=== PATIENT | female | born 1950 | race Caucasian/White ===

== ENCOUNTER → 2020-06-21 11:59 | Outpatient (BNVA) | payer MEDICARE, OTHER, SELFPAY | PROVIDERS: Family Provider Family Medicine; PCP Family Medicine; Referring Provider Family Medicine; Visit Provider Specialist | DX: G56.03 Carpal tunnel syndrome, bilateral upper limbs (principal); R20.2 Paresthesia of skin | CPT/HCPCS: 95910 ==

== ENCOUNTER 2020-07-04 08:15 | Outpatient (CLI) | payer MEDICARE, OTHER, SELFPAY ==
--- NOTE | 2020-07-04 08:26 | MM_ITS ---
WS: [id number] BILATERAL DIGITAL SCREENING MAMMOGRAPHY WITH CAD CLINICAL INFORMATION: SCREENING HISTORY: Screening mammogram. No current complaints. COMPARISON: TECHNIQUE: Bilateral CC and MLO views. FINDINGS: Scattered fibroglandular densities bilaterally. No suspicious focal mass, asymmetry, calcifications, or architectural distortion. No evidence of malignancy. A few lucent centered calcifications. Vascula [place] calcification. MM/[id number] IMPRESSION: BI-RADS: 2-Benign FOLLOW UP: 1 Year Follow-up Recommend return to annual screening mammography.
== END 2020-07-04 08:16 | disposition home or self-care (01) ==
LOC: RADSHAW 08:19
PROVIDERS: PCP Family Medicine; Visit Provider Family Medicine
DX: Z12.31 Encounter for screening mammogram for malignant neoplasm of breast (principal)
CPT/HCPCS: 77067

== ENCOUNTER → 2020-08-10 13:15 | Outpatient (BNVA) | payer MEDICARE, OTHER, SELFPAY | PROVIDERS: PCP Family Medicine; Visit Provider Specialist | DX: M79.641 Pain in right hand (principal); M79.642 Pain in left hand; G56.02 Carpal tunnel syndrome, left upper limb; G56.01 Carpal tunnel syndrome, right upper limb | CPT/HCPCS: 73100; 73110 ==

== ENCOUNTER → 2020-09-06 12:54 | Outpatient (BNVA) | payer MEDICARE, OTHER, SELFPAY | PROVIDERS: PCP Family Medicine; Visit Provider Specialist | DX: Z11.59 Encounter for screening for other viral diseases (principal) | CPT/HCPCS: 87635 ==

== ENCOUNTER 2020-09-09 06:22 | Day surgery (SDC) | payer MEDICARE, OTHER, SELFPAY ==
[2020-09-08 09:27] VITALS: BMI 28.3
[2020-09-09 06:31] VITALS: BP 122/63; PULSE 66; RESP 18; TEMP 36.5; O2SAT 98
[2020-09-09] MEDS: sodium chloride 0.9% 1,000 ML 30 ML IV (06:54)
[2020-09-09] MEDS: CELEcoxib 200 mg Capsule 400 MG PO (06:55)
--- NOTE | 2020-09-09 07:00 | W.PM.OPSUD ---
Surgery/Procedure H&P Update DATE OF PROCEDURE: September 09, 2020 DATE H&P PERFORMED: 09/09/20 H&P UPDATE INFORMATION: I have reviewed H&P completed within last 30 days, I have examined patient prior to procedure and H&P to be scanned into chart PREOP DIAGNOSIS: Right carpal tunnel syndrome PLANNED PROCEDURE: Operation Date: 09/09/20 08:00 Proposed Procedures p Carpal Tunnel Release [id number] G56.01(Right) - Kaley Weiss MD Related Problem List Diagnoses (1) Right carpal tunnel syndrome:
--- NOTE | 2020-09-09 07:14 | P.ANESASSM_ITS ---
Pre-Anesthetic Assessment Pre-Anesthetic Assessment: Height/Weight: Height 1.65 m Weight 77.111 kg Temp Pulse Resp BP Pulse Ox 97.7 F 66 18 122/63 98 09/09/20 06:31 09/09/20 06:31 09/09/20 06:31 09/09/20 06:31 09/09/20 06:31 Preop Diagnosis: Right carpal tunnel syndrome Proposed Procedure: Operation Date: 09/09/20 08:00 Proposed Procedures p Carpal Tunnel Release 70426 G56.01(Right) - Kaley Weiss MD Familial anesthetic complications: None Was Beta Lacy taken within 24 hour s: N/A Last intake: Intake Last Liquid Date 09/08/20 Last Liquid Time 23:30 Last Solid Date 09/08/20 Last Solid Time 19:00 Social: Social History: No alcohol and No tobacco Exam: Pre-Anes Outpt Exam: alert, oriented x 3, clear to auscultation bilaterally and regular rate & rhythm Airway: Cervical ROM: WNL MP: 1 Dentition: Full CV/HEM: CV/HEM: HTN Neuropsych: Comments: restless leg Anesthetic Plan: ASA status: 2 Anesthesia: MAC and Regional (specify below) (jamal block) Risk of > 500 ml blood loss (7ml/kg in children): No Meds/Allergies Current Medications: Current Medications Generic Name Dose Route Start Last Admin Trade Name Freq PRN Reason Stop Dose Admin Sodium Chloride 1,000 mls @ 30 ml s/hr 09/09/20 06:30 09/09/20 06:54 Sodium Chloride 0.9% IV 09/10/20 06:29 30 mls/hr .Q24H ANDREAS Administration PFSH Anesthesia PFSH: Family History Father Diabetes Cancer Mother Cancer Social History Smoking and tobacco status: never smoked Alcohol intake: current Alcohol intake frequency: holidays/special occasions only Data Anesthesia CBC & Chem 7: 09/09/20 06:45 Cardiac Studies: No Data to Display
[2020-09-09 07:32] LABS: Anion Gap 14.9 (5-19); Blood Urea Nitrogen 25 mg/dL (8-23); Calcium 9.1 mg/dL (8.5-10.5); Carbon Dioxide 24 mmol/L (22-29); Chloride 103 mmol/L (98-107); Glucose 92 mg/dL (65-115); Osmolality Calculated 290 mOsm/kg (285-295); Potassium 3.9 mmol/L (3.5-5.1); Sodium 138 mmol/L (136-145)
[2020-09-09] MEDS: clindamycin 600 MG/50 ML PREMIX 100 MG IV (08:08)
[2020-09-09 08:56] VITALS: BP 106/64; PULSE 66; RESP 18; TEMP 36.1; O2SAT 97
--- NOTE | 2020-09-09 09:04 | PM.OP ---
Operative Report Date of procedure: September 09, 2020 Pre-op Diagnosis: Right carpal tunnel syndrome Post-op diagnosis: same Procedure Done: Right carpal tunnel release Specimens removed/disposition: None Pathology: none sent Surgeon: Kaley Weiss Speech Assistant: None Anesthesia: MAC (With Suha block, ASA 2) Estimated blood loss (mL): 5 Tourniquet time (min): 30 Tourniquet time: At 250 mmHg IV fluids (mL): 400 Urine output (mL): 0 Urine output: No Morrison Complications: None Findings: Significant compression across the carpal canal Condition: stable Disposition: same day Brief History: This 70-year-old woman presented with symptoms consistent with carpal tunnel syndrome with median nerve compression. After evaluation and discussion, the patient wished to proceed with operative intervention. Risks and complications were discussed with her. Consents were signed preoperatively. Questions were answered. Procedure: The patient was brought to the operating theater. The patient had a [place] block with MAC. The tourniquet was elevated to 250 mmHg for a total tourniquet time of 30 minutes. The patient was also given clindamycin 600 mg preoperatively. The arm was then prepped and draped with DuraPrep in usual fashion with the arm draped free. A surgical pause was performed. At the time, the surgical pause, we confirmed the site and side of surgery. We also confirmed the patient's identity, appropriate and timely administration of preoperative antibiotics and preoperative surgical markings. An incision was then made along the thenar crease. The incision crossed the wrist joint in a curvilinear fashion. Dissection continued through skin and soft tissues using a scalpel. The palmaris longus was identified along with the transverse carpal ligament. Each of these was released carefully to avoid injury to the median nerve. We were able to dissect gently into the carpal canal which was noted to be quite tight with significant compression across the median nerve. The nerve was visualized and was an hourglass shape. The canal was subsequently palpated to assure there was no bony encroachment upon the canal. The canal was then palpated distally and proximally to assure that my small finger was passed easily without impingement. Finding this to be so, attention was directed to closure. The wound was irrigated with ropivacaine plain. It was then closed with 3-0 nylon in an interrupted mattress fashion. Sterile dressing was then placed consisting of Xeroform gauze, fluffed fluffs, sterile soft roll, a volar splint, and an Alek wrap. The tourniquet was released after 30 minutes. There were no complications. There were no specimens. The procedure was well tolerated. Plan is the patient will be discharged home. Associated Problem List Diagnoses (1) Right carpal tunnel syndrome:
[2020-09-09 09:13] VITALS: BP 112/67; PULSE 69; RESP 18; O2SAT 99
--- NOTE | 2020-09-09 09:25 | ANE.PACU2 ---
Inpatient post-anesthesia follow up: Airway intact: Yes Vital signs: Temperature 97 F Pulse Rate 69 Respiratory Rate 18 Blood Pressure 112/67 Pulse Oximetry 99 Oxygen Delivery Me thod Room Air Oxygen Flow Rate Fraction of Inspir ed Oxygen Hydration adequate: Yes Nausea and vomiting: No Pain level: 2 Mental status: Baseline
== END 2020-09-09 09:37 | disposition home or self-care (01) ==
PROVIDERS: PCP Family Medicine; Visit Provider Specialist
PROC: (CPT 64721; principal; 2020-09-09 08:00)
DX: G56.01 Carpal tunnel syndrome, right upper limb (principal); I10 Essential (primary) hypertension
CPT/HCPCS: 64721; 12345; 80048; J0131; J2704; J3010; J3490; J7030

== ENCOUNTER 2021-03-28 10:29 | Outpatient (RCR) | payer MEDICARE, OTHER, SELFPAY | END 2021-04-03 23:59 | disposition home or self-care (01) | LOC: SPT 10:29 | PROVIDERS: PCP Family Medicine; Referring Provider Orthopaedic Surgery; Visit Provider Orthopaedic Surgery | DX: M16.10 Unilateral primary osteoarthritis, unspecified hip (principal) | CPT/HCPCS: 87635; 97161 ==

== ENCOUNTER 2021-03-31 08:08 | Day surgery (SDC) | payer MEDICARE, OTHER, SELFPAY ==
[2021-03-29 13:09] VITALS: BMI 29.2
[2021-03-31 08:26] VITALS: BP 123/68; PULSE 77; RESP 18; TEMP 36.1; O2SAT 98
--- NOTE | 2021-03-31 08:40 | P.ANESASSM_ITS ---
Pre-Anesthetic Assessment Pre-Anesthetic Assessment: Height/Weight: Height 1.63 m Weight 77.111 kg Temp Pulse Resp BP Pulse Ox 97 F L 77 18 123/68 98 03/31/21 08:26 03/31/21 08:26 03/31/21 08:26 03/31/21 08:26 03/31/21 08:26 Preop Diagnosis: Right carpal tunnel syndrome Proposed Procedure: Operation Date: 03/31/21 09:00 Proposed Procedures p Colonoscopy 25636 z12.11(Not Applicable) - Bruce Avilez MD Was Beta Lacy taken within 24 hours: N/A Was Clonidine taken within 24 hours: N/A Last intake: Intake Last Liquid Date 03/30/21 Last Liquid Time 19:00 Last Solid Date 03/29/21 Last Solid Time 18:00 Last Intake: 18:00 Social: Social History: No alcohol and No tobacco Exam: Pre-Anes Outpt Exam: alert and oriented x 3 Airway: Submandibular: WNL Cervical ROM: WNL MP: 2 History/ROS: No significant history except as noted and No significant complaints Anesthetic Plan: ASA status: 2 Anesthesia: MAC Risk of > 500 ml blood loss (7ml/kg in children): No 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
[2021-03-31] MEDS: sodium chloride 0.9% 1,000 ML 30 ML IV (08:44)
--- NOTE | 2021-03-31 09:08 | W.PM.OPSFHP ---
Same Day Surgery H&P Indication for Procedure/HPI DATE OF PROCEDURE: March 31, 2021 CHIEF COMPLAINT/INDICATIONFOR SURGICAL PROCEDURE: Screening colonoscopy PREOP DIAGNOSIS: Right carpal tunnel syndrome PLANNED PROCEDRUE: Operation Date: 03/31/21 09:00 Proposed Procedures p Colonoscopy 66809 z12.11(Not Applicable) - Bruce Avilez MD Medications/Allergies* Home Medications Medication Instructions Recorded Confirmed Type bupropion HCl 300 mg 24 hr tablet, 300 mg PO QAM 08/10/20 03/29/21 History extended release lisinopril 20 1 tab PO DAILY 08/10/20 03/29/21 History mg-hydrochlorothiazide 25 mg tablet ropinirole 3 mg tablet 1 mg PO BID tab 03/16/21 03/29/21 History Allergies/Adverse Reactions Allergy/AdvReac Type Severity Reaction Status Date / Time amoxicillin [From Augmentin] Allergy Severe Hives Verified 03/29/21 13:06 clavulanic acid Allergy Severe Hives Verified 03/29/21 13:06 [From Augmentin] sulfamethoxazole Allergy Severe Anaphylaxis Verified 03/29/21 13:06 [From Bactrim] trimethoprim [From Bactrim] Allergy Severe Anaphylaxis Verified 03/29/21 13:06 Penicillins Allergy Hives Verified 03/29/21 13:06 Current Medications: Generic Name Dose Route Start Last Admin Trade Name Isrealq PRN Reason Stop Dose Admin Sodium Chloride 1,000 mls @ 30 mls/hr 03/31/21 08:15 03/31/21 08:44 Sodium Chloride 0.9% IV 04/01/21 08:14 30 mls/hr .Q24H ANDREAS Administration Pertinent History/Comorbid Conditions* Family History (Updated 08/10/20 @ 13:40 by Roxana Bae LPN) Diabetes Father Cancer Father Mother Social History Smoking and tobacco status: never smoked Alcohol intake: current Alcohol intake frequency: holidays/special occasions only Pertinent Exam Findings alert, oriented x 3, clear to auscultation bilaterally, regular rate & rhythm, operative site marked and procedure specific exam findings Recommendations Surgery/Procedure today Coding Level of Care Code Acute Elevator Examiner And Adjuster for Pranay Hawkins
[2021-03-31 09:38] VITALS: BP 113/59; PULSE 74; RESP 16; TEMP 36.1; O2SAT 92
[2021-03-31 09:46] VITALS: BP 102/56; PULSE 64; RESP 16; O2SAT 97
--- NOTE | 2021-03-31 13:14 | ANE.PACU2 ---
Inpatient post-anesthesia follow up: Airway intact: Yes Vital signs: Temperature 97 F Pulse Rate 64 Respiratory Rate 16 Blood Pressure 102/56 Pulse Oximetry 97 Oxygen Delivery Me thod Room Air Oxygen Flow Rate Fraction of Inspir ed Oxygen Hydration adequate: Yes Nausea and vomiting: No Pain level: 2 Mental status: Baseline
== END 2021-03-31 10:00 | disposition home or self-care (01) ==
PROVIDERS: PCP Family Medicine; Visit Provider Internal Medicine
PROC: 0DJD8ZZ Inspection of Lower Intestinal Tract, Via Natural or Artificial Opening Endoscopic (ICD-10-PCS; CPT 45378; principal; 2021-03-31 09:00)
DX: Z12.11 Encounter for screening for malignant neoplasm of colon (principal); K57.30 Diverticulosis of large intestine without perforation or abscess without bleeding; Z83.3 Family history of diabetes mellitus
CPT/HCPCS: 96360; G0121; J2704; J7030

== ENCOUNTER 2021-04-04 06:00 | Outpatient (RCR) | payer MEDICARE, OTHER, SELFPAY | END 2021-05-03 23:59 | disposition home or self-care (01) | LOC: SPT 06:00 | PROVIDERS: PCP Family Medicine; Referring Provider Orthopaedic Surgery; Visit Provider Orthopaedic Surgery | DX: M16.11 Unilateral primary osteoarthritis, right hip (principal) | CPT/HCPCS: 97110 ==

== ENCOUNTER 2021-10-02 12:29 | Outpatient (CLI) | payer MEDICARE, OTHER, SELFPAY ==
--- NOTE | 2021-10-02 12:51 | MM_ITS ---
WS: [id number] BILATERAL DIGITAL SCREENING MAMMOGRAPHY WITH CAD CLINICAL INFORMATION: SCREEN HISTORY: Screening mammogram. No current complaints. COMPARISON: July 04, 2020 TECHNIQUE: Bilateral CC and MLO views. FINDINGS: Scattered fibroglandular densities bilaterally. Vascular calcification. No suspicious focal mass, asy mmetry, calcifications, or architectural distortion. No evidence of malignancy. MM/[place] [id number] IMPRESSION: BI-RADS: 2-Benign FOLLOW UP: 1 Year Follow-up Recommend return to annual screening mammography.
== END 2021-10-02 12:30 | disposition home or self-care (01) ==
LOC: RADSHAW 12:32
PROVIDERS: PCP Family Medicine; Visit Provider Family Medicine
DX: Z12.31 Encounter for screening mammogram for malignant neoplasm of breast (principal)
CPT/HCPCS: 77067

== ENCOUNTER 2022-07-11 08:30 | Outpatient (RCR) | payer MEDICARE, OTHER, SELFPAY | END 2022-08-03 23:59 | disposition home or self-care (01) | LOC: SPT 08:30 | PROVIDERS: PCP Family Medicine; Visit Provider Orthopaedic Surgery | DX: M70.61 Trochanteric bursitis, right hip (principal) | CPT/HCPCS: 97110; 97161 ==

== ENCOUNTER 2022-10-10 08:27 | Outpatient (RCR) | payer MEDICARE, OTHER, SELFPAY | END 2022-11-03 23:59 | disposition home or self-care (01) | LOC: SPT 08:27 | PROVIDERS: PCP Family Medicine; Visit Provider Family Medicine | DX: M25.551 Pain in right hip (principal) | CPT/HCPCS: 97110; 97161 ==

== ENCOUNTER 2022-12-05 06:00 | Outpatient (RCR) | payer MEDICARE, OTHER, SELFPAY | END 2023-01-01 23:59 | disposition home or self-care (01) | LOC: SPT 06:00 | PROVIDERS: PCP Family Medicine; Visit Provider Family Medicine | DX: M25.551 Pain in right hip (principal) | CPT/HCPCS: 97110 ==

== ENCOUNTER 2022-12-06 07:56 | Outpatient (CLI) | payer MEDICARE, OTHER, SELFPAY ==
--- NOTE | 2022-12-06 08:02 | MM_ITS ---
WS: [id number] BILATERAL SCREENING DIGITAL TOMOSYNTHESIS MAMMOGRAM WITH CAD HISTORY: SCREENING COMPARISON: 10/02/2021, 07/04/2020 Bilateral CC and MLO views with tomosynthesis and synthetic mammography submitted. Computer aided det ection analyzed. Breast composition: There are scattered areas of fibroglandular density. No suspicious masses, microc alcifications or architectural distortion. Benign breast arterial calcifications. MM/[place] [id number] IMPRESSION: BI-RADS: 2-Benign FOLLOW UP: 1 Year Follow-up
== END 2022-12-06 07:57 | disposition home or self-care (01) ==
LOC: RAD 07:56
PROVIDERS: PCP Family Medicine; Visit Provider Family Medicine
DX: Z12.31 Encounter for screening mammogram for malignant neoplasm of breast (principal)
CPT/HCPCS: 77063; 77067

== ENCOUNTER 2023-01-02 06:00 | Outpatient (RCR) | payer MEDICARE, OTHER, SELFPAY | END 2023-01-17 23:59 | disposition home or self-care (01) | LOC: SPT 06:00 | PROVIDERS: PCP Family Medicine; Visit Provider Family Medicine | DX: M25.551 Pain in right hip (principal) | CPT/HCPCS: 97110 ==

== ENCOUNTER 2023-12-10 08:40 | Outpatient (CLI) | payer MEDICARE, SELFPAY ==
--- NOTE | 2023-12-10 08:49 | MM_ITS ---
WS: [id number] BILATERAL SCREENING DIGITAL TOMOSYNTHESIS MAMMOGRAM WITH CAD HISTORY: SCREENING COMPARISON: 12/06/2022 and 10/02/2021 Bilateral CC and MLO views with tomosynthesis and synthetic mammography submitted. Computer aided det ection analyzed. Breast composition: There are scattered areas of fibroglandular density. No suspicious masses, microc alcifications or architectural distortion. Benign bilateral breast arterial calcifications. IMPRESSION: MM/[place] [id number] BI-RADS: 2-Benign FOLLOW UP: 1 Year Follow-up
== END 2023-12-10 08:41 | disposition home or self-care (01) ==
LOC: RAD 08:40
PROVIDERS: PCP Family Medicine; Visit Provider Family Medicine
DX: Z12.31 Encounter for screening mammogram for malignant neoplasm of breast (principal); R92.323 Mammographic fibroglandular density, bilateral breasts
CPT/HCPCS: 77063; 77067

== ENCOUNTER 2024-08-04 12:54 | Outpatient (CLI) | payer MEDICARE, SELFPAY ==
--- NOTE | 2024-08-04 13:00 | XR_ITS ---
WS: [id number] DEXA (DUAL ENERGY X-RAY ABSORPTIOMETRY) Bone mineral density was performed using a [employer] machine. HISTORY: postmenopausal COMPARISON: 07/13/2019 Lumbar spine BMD (L1-L4): 1.334 g/cm2 T score: 1.3 Z score: 2.6 Total hip BMD: Left: 1.105 (g/cm2). T score: 0.8 (no units) Z score: 2.1 (no units) Left forearm BMD: 0.888 g/cm2. T score: 0.1 Z score: 2.3 10 year probability of a major osteoporotic fracture is 6.9%. Compared to the prior study from 07/13/2019. Lumbar spine bone mineral density has increased by 0.5%. LEFT hip bone mineral density has decreased by 3.6%. XR/XR DEXA axial skeleton* [id number] IMPRESSION: Normal bone mineral density Based upon the WHO classification for females. Significant decrease in bone mineral density within the LEFT hip since the prio r study. No change of bone mineral density in the lumbar spine.
== END 2024-08-04 12:55 | disposition home or self-care (01) ==
LOC: RAD 12:55
PROVIDERS: PCP Family Medicine; Visit Provider Family Medicine
DX: Z13.820 Encounter for screening for osteoporosis (principal); Z78.0 Asymptomatic menopausal state
CPT/HCPCS: 77080

== ENCOUNTER 2024-12-11 08:04 | Outpatient (CLI) | payer MEDICARE, SELFPAY ==
--- NOTE | 2024-12-11 | MM_ITS ---
WS: [id number] Bilateral screening 3D tomosynthesis digital mammogram, 12/11/2024 8:08 AM Clinical Data: ANNUAL SCREENING Comparison: 12/10/2023, 12/06/2022, 10/02/2021, 07/04/2020, 07/02/2019, 04/08/2018, 02/09/2017, 02/10/2016, 02/04/2015, 01/15/2012, 01/16/2011, 01/08/2011, 01/27/2010, 12/24/2008, 02/14/2007. Findings: No spiculated masses or clustered calcifications are seen. There are no secondary signs of carcinoma. MM/MM scr BI tomosynthesis [id number] Impression: Negative bilateral mammogram unchanged. Recommend annual screening mammograms. BIRADS: 1 - Negative. FOLLOW UP: 1 Year Follow-up DENSITY: There are scattered areas of fibroglandular density. The CAD weight checker was used
== END 2024-12-11 08:05 | disposition home or self-care (01) ==
PROVIDERS: PCP Family Medicine; Visit Provider Family Medicine
DX: Z12.31 Encounter for screening mammogram for malignant neoplasm of breast (principal); R92.323 Mammographic fibroglandular density, bilateral breasts
CPT/HCPCS: 77063; 77067

== ENCOUNTER → 2025-02-25 09:29 | Outpatient (BNVA) | payer MEDICARE, SELFPAY | PROVIDERS: PCP Family Medicine; Visit Provider Nurse Practitioner Family | DX: L81.4 Other melanin hyperpigmentation (principal); X32.XXXA Exposure to sunlight, initial encounter; L82.1 Other seborrheic keratosis; D22.5 Melanocytic nevi of trunk; L57.0 Actinic keratosis | CPT/HCPCS: 17000; 99203 ==